=== PATIENT | female | born 1990 | race Caucasian/White ===

== ENCOUNTER → 2018-07-09 | Outpatient (CLI) | payer BC, OTHER ==
--- NOTE | 2018-07-09 17:02 | Diagnostic Imaging Report ---
INDICATION: Pelvic pain. Pelvic sonography performed with transabdominal and transvaginal views. The uterus measures 7.5 x 5.0 x 3.9 cm. Endometrium is somewhat prominent measuring 1.5 cm. This may be related to menstrual phase in a patient of this age. There is no uterine mass. There is no free fluid. Neither ovary could be visualized due to prominent amount of bowel gas. IMPRESSION: Limited study. No uterine mass. Endometrium is somewhat thickened although this may be related to menstrual phase in a patient of this age. Neither ovary could be visualized. Consider a follow-up study as clinically warranted. Dictated by: Dictated on workstation # [id number]
== END ==
LOC: RAD 14:36
PROVIDERS: ATTEND Nurse Practitioner
DX: R10.2 Pelvic and perineal pain (principal); E66.01 Morbid (severe) obesity due to excess calories
CPT/HCPCS: 76830; 76856

== ENCOUNTER → 2020-02-23 | Outpatient (CLI) | payer SELFPAY ==
[2020-02-23 14:16] LABS: BASOPHILS % (AUTO) 0 % (0-10); EOSINOPHILS # (AUTO) 0.1 10^3/uL (0.0-0.3); EOSINOPHILS % (AUTO) 1 % (0-10); HEMATOCRIT 42 % (35-52); HEMOGLOBIN 12.7 G/DL (11.5-16.0); LYMPHOCYTES # (AUTO) 2.4 X 10^3 (1.0-4.0); LYMPHOCYTES % (AUTO) 24 % (12-44); MEAN CORPUSCULAR HEMOGLOBIN 26 PG (25-34); MEAN CORPUSCULAR HGB CONC 31 G/DL (32-36); MEAN CORPUSCULAR VOLUME 84 FL (80-99); MEAN PLATELET VOLUME 10.9 FL (7.4-10.4); MONOCYTES # (AUTO) 0.4 X 10^3 (0.0-1.0); MONOCYTES % (AUTO) 4 % (0-12); NEUTROPHILS # (AUTO) 6.9 X 10^3 (1.8-7.8); NEUTROPHILS % (AUTO) 70 % (42-75); PLATELET COUNT 278 10^3/uL (130-400); WHITE BLOOD COUNT 9.8 10^3/uL (4.3-11.0)
[2020-02-23 14:33] LABS: BUN/CREATININE RATIO 12; CALCIUM 8.9 MG/DL (8.5-10.1); CARBON DIOXIDE 23 MMOL/L (21-32); CHLORIDE 106 MMOL/L (98-107); CREATININE SERUM 0.73 MG/DL (0.60-1.30); GFR ESTIMATED > 60; GLUCOSE 98 MG/DL (70-105); POTASSIUM 3.7 MMOL/L (3.6-5.0); SODIUM 139 MMOL/L (135-145)
[2020-02-23 14:45] LABS: ERYTHROCYTE SEDIMENTATION RATE 23 MM/HR (0-20)
== END ==
LOC: LAB 13:55
PROVIDERS: ATTEND Family Medicine
DX: L30.9 Dermatitis, unspecified (principal); R53.83 Other fatigue
CPT/HCPCS: 36415; 80048; 85025; 85652; 85730; 86038; 86141